=== PATIENT | male | born 1940 | race Caucasian/White ===

== ENCOUNTER 2018-06-01 12:34 | Outpatient (REF) | payer MEDICARE, OTHER, SELFPAY ==
[2018-06-01 18:56] LABS: ALT 42 U/L (12-78); Anion Gap 10.8 mmol/L (3-11); BUN 18 mg/dL (7-18); CO2 26.2 mmol/L (21.0-32.0); CREATININE 0.91 mg/dL (0.70-1.30); Calcium 9.1 mg/dL (8.5-10.1); Chloride 105 mmol/L (98-107); Glucose 87 mg/dL (70-100); LDL CHOLESTEROL 71 mg/dL (<100); Potassium 4.5 mmol/L (3.5-5.1); Sodium 142 mmol/L (136-145)
== END 2018-06-01 12:54 ==
LOC: NCHCN 12:34
PROVIDERS: PCP Physician Assistant Medical; Visit Provider Internal Medicine
DX: R53.83 Other fatigue (principal); I25.10 Atherosclerotic heart disease of native coronary artery without angina pectoris
CPT/HCPCS: 80048; 83721; 84460

== ENCOUNTER 2020-05-09 11:57 | Outpatient (REF) | payer MEDICARE, OTHER, SELFPAY ==
[2020-05-09 15:30] LABS: Abs Immature Grans 0.03 10^3/uL (0.0-0.06); Absolute Basophil Count 0.03 10^3/uL (0.0-0.2); Absolute Eosinophil Count 0.15 10^3/uL (0.0-0.7); Absolute Lymphocyte Count 1.73 10^3/uL (1.2-3.4); Absolute Monocyte Count 0.68 10^3/uL (0.1-0.8); Absolute Neutrophil Count 5.79 10^3/uL (1.2-6.7); Basophils % 0.4; Eosinophils % 1.8; HCT 38.6 % (40.0-50.0); HGB 12.9 g/dL (13.5-17.5); Immature Grans % 0.4; Lymphocytes % 20.6; MCH 30.9 pg (27.0-33.0); MCHC 33.4 % (32.0-36.0); MCV 92.3 fL (80-95); MPV 10.8 fL (8.0-11.0); Monocytes % 8.1; Neutrophils % 68.7; Nucleated RBC 0 %; Platelet Count 210 10^3/uL (130-400); RBC 4.18 10^6/uL (4.36-5.78); RDW 12.5 % (11.8-14.1); RDW-SD 42.5 fL; WBC 8.41 10^3/uL (4.4-10.8)
[2020-05-09 15:39] LABS: Anion Gap 8.7 mmol/L (3-11); BUN 23 mg/dL (7-18); CO2 26.3 mmol/L (21.0-32.0); CREATININE 1.3 mg/dL (0.70-1.30); Calcium 9.4 mg/dL (8.5-10.1); Chloride 105 mmol/L (98-107); Estimated GFR 53.12 (mL/min/1.73m2); Glucose 95 mg/dL (74-106); Potassium 5.2 mmol/L (3.5-5.1); Sodium 140 mmol/L (136-145); TSH 1.17 uIU/mL (0.36-3.74)
[2020-05-09 22:02] LABS: PSA, Diagnostic 4.1 ng/mL (0.0-6.5)
== END 2020-05-09 11:58 | disposition home or self-care (01) ==
LOC: NCHCN 11:57
PROVIDERS: PCP Physician Assistant Medical; Visit Provider Internal Medicine
DX: R53.83 Other fatigue (principal); I10 Essential (primary) hypertension; N42.9 Disorder of prostate, unspecified
CPT/HCPCS: 80048; 84153; 84443; 85025

== ENCOUNTER 2020-05-26 11:19 | Outpatient (REF) | payer MEDICARE, OTHER, SELFPAY ==
[2020-05-26 16:10] LABS: Iron 79 ug/dL (65-175); Total Iron Binding Capacity 359 ug/dL (250-450); Transferrin Sat 22 % (20-55)
[2020-05-26 16:40] LABS: Anion Gap 6.5 mmol/L (3-11); BUN 25 mg/dL (7-18); CO2 27.5 mmol/L (21.0-32.0); Calcium 9.1 mg/dL (8.5-10.1); Chloride 107 mmol/L (98-107); Ferritin 43 ng/mL (26-388); Glucose 96 mg/dL (74-106); Potassium 4.5 mmol/L (3.5-5.1); Sodium 141 mmol/L (136-145)
== END 2020-05-26 11:20 | disposition home or self-care (01) ==
LOC: NCHCN 11:19
PROVIDERS: PCP Physician Assistant Medical; Visit Provider Internal Medicine
DX: D64.9 Anemia, unspecified (principal); I10 Essential (primary) hypertension
CPT/HCPCS: 80048; 82728; 83540; 83550; 85045

== ENCOUNTER 2020-05-27 16:22 | Outpatient (REF) | payer MEDICARE, OTHER, SELFPAY | END 2020-05-27 16:23 | disposition home or self-care (01) | LOC: NCHCN 16:22 | PROVIDERS: PCP Physician Assistant Medical; Visit Provider Internal Medicine | DX: D64.9 Anemia, unspecified (principal); I10 Essential (primary) hypertension | CPT/HCPCS: 85045 ==

== ENCOUNTER 2021-05-22 13:31 | Outpatient (REF) | payer MEDICARE, OTHER, SELFPAY ==
[2021-05-22 19:54] LABS: HCT 37.8 % (40.0-50.0); HGB 12.4 g/dL (13.5-17.5); MCH 30.3 pg (27.0-33.0); MCHC 32.8 % (32.0-36.0); MCV 92.4 fL (80-95); MPV 11.4 fL (8.0-11.0); Platelet Count 183 10^3/uL (130-400); RBC 4.09 10^6/uL (4.36-5.78); RDW 13.1 % (11.8-14.1); RDW-SD 44.1 fL; WBC 8.17 10^3/uL (4.4-10.8)
[2021-05-22 20:07] LABS: ALT 26 U/L (16-63); Anion Gap 10.4 mmol/L (3-11); BUN 25 mg/dL (7-18); CO2 24.6 mmol/L (21.0-32.0); Calcium 8.8 mg/dL (8.5-10.1); Calculated LDL 56 mg/dL (<100); Chloride 105 mmol/L (98-107); Cholesterol 142 mg/dL (<200); Glucose 92 mg/dL (74-106); HDL Cholesterol 67 mg/dL (40-60); Potassium 4.8 mmol/L (3.5-5.1); Sodium 140 mmol/L (136-145); Triglyceride 96 mg/dL (<150)
== END 2021-05-22 13:32 | disposition home or self-care (01) ==
LOC: NCHCN 13:31
PROVIDERS: PCP Physician Assistant Medical; Visit Provider Internal Medicine
DX: D64.9 Anemia, unspecified (principal); R53.83 Other fatigue; E78.5 Hyperlipidemia, unspecified
CPT/HCPCS: 80048; 80061; 85027; 84460

== ENCOUNTER 2022-05-27 13:18 | Outpatient (REF) | payer MEDICARE, OTHER, SELFPAY ==
[2022-05-27 20:05] LABS: Anion Gap 9.1 mmol/L (3-11); BUN 24 mg/dL (7-18); CO2 25.9 mmol/L (21.0-32.0); CREATININE 1.1 mg/dL (0.70-1.30); Calcium 9.2 mg/dL (8.5-10.1); Calculated LDL 50 mg/dL (<100); Chloride 105 mmol/L (98-107); Cholesterol 136 mg/dL (<200); Estimated GFR 67.02 (mL/min/1.73m2); Glucose 93 mg/dL (74-106); HDL Cholesterol 69 mg/dL (40-60); Potassium 4.6 mmol/L (3.5-5.1); Sodium 140 mmol/L (136-145); Triglyceride 85 mg/dL (<150)
[2022-05-31 11:47] LABS: Lyme Ab w Rflx to Lyme Confirm Negative (Negative)
== END 2022-05-27 13:19 | disposition home or self-care (01) ==
LOC: NCHCN 13:18
PROVIDERS: PCP Physician Assistant Medical; Visit Provider Internal Medicine
DX: I10 Essential (primary) hypertension (principal); I25.10 Atherosclerotic heart disease of native coronary artery without angina pectoris; M13.161 Monoarthritis, not elsewhere classified, right knee
CPT/HCPCS: 80048; 80061; 86618

== ENCOUNTER 2023-05-19 14:25 | Outpatient (REF) | payer MEDICARE, OTHER, SELFPAY ==
[2023-05-19 18:57] LABS: HCT 37.2 % (40.0-50.0); HGB 12.7 g/dL (13.5-17.5); MCH 30.5 pg (27.0-33.0); MCHC 34.1 % (32.0-36.0); MCV 89 fL (80-95); MPV 11.3 fL (8.0-11.0); Platelet Count 199 10^3/uL (130-400); RBC 4.16 10^6/uL (4.36-5.78); RDW 13.9 % (11.8-14.1); RDW-SD 45.2 fL; WBC 6.12 10^3/uL (4.4-10.8)
[2023-05-19 19:13] LABS: ALT 39 U/L (16-63); Anion Gap 10.2 mmol/L (3-11); BUN 23 mg/dL (7-18); CO2 28.8 mmol/L (21.0-32.0); CREATININE 1.7 mg/dL (0.70-1.30); Calcium 9.6 mg/dL (8.5-10.1); Calculated LDL 65 mg/dL (<100); Chloride 104 mmol/L (98-107); Cholesterol 163 mg/dL (<200); Creatine Kinase 194 U/L (39-308); Estimated GFR 39.51 (mL/min/1.73m2); Glucose 128 mg/dL (74-106); HDL Cholesterol 87 mg/dL (40-60); Potassium 4.5 mmol/L (3.5-5.1); Sodium 143 mmol/L (136-145); Triglyceride 56 mg/dL (<150)
== END 2023-05-19 14:26 | disposition home or self-care (01) ==
LOC: NCHCN 14:25
PROVIDERS: PCP Physician Assistant Medical; Visit Provider Internal Medicine
DX: E78.5 Hyperlipidemia, unspecified (principal); D64.9 Anemia, unspecified; I10 Essential (primary) hypertension
CPT/HCPCS: 80048; 80061; 82550; 85027; 84460

== ENCOUNTER 2023-05-24 16:07 | Outpatient (REF) | payer MEDICARE, OTHER, SELFPAY ==
[2023-05-24 20:05] LABS: Bilirubin Negative (Negative); Blood Negative (Negative); Clarity Clear (Clear); Glucose Negative (Negative); Ketones Trace mg/dL (Negative); Leukocyte Esterase Negative (Negative); Nitrite Negative (Negative); Urobilinogen 0.2 mg/dL (Up to 0.2); pH 5.5 (5-8)
[2023-05-26 15:25] LABS: Albumin 64.5 % (55.8-66.1); Albumin g/dL 4.3 g/dL (3.6-5.2); Total Protein 6.6 g/dL (6.3-8.2)
[2023-05-26 15:36] LABS: Albumin, Urine % 14.6 %; Albumin, Urine mg/dL 1 mg/dL; Globulins, Urine % 85.4 %; Globulins, Urine mg/dL 4 mg/dL; Immunotyping, Urine (See Note); Total Protein Urine 5 mg/dL (See Note)
== END 2023-05-24 16:08 | disposition home or self-care (01) ==
LOC: NCHCN 16:07
PROVIDERS: PCP Physician Assistant Medical; Visit Provider Internal Medicine
DX: N18.30 Chronic kidney disease, stage 3 unspecified (principal)
CPT/HCPCS: 84156; 84166; 86335; 81003; 84165

== ENCOUNTER 2024-05-09 16:38 | Outpatient (REF) | payer MEDICARE, SELFPAY ==
[2024-05-09 20:24] LABS: HCT 38.5 % (40.0-50.0); HGB 12.8 g/dL (13.5-17.5); MCH 30.8 pg (27.0-33.0); MCHC 33.2 % (32.0-36.0); MCV 93 fL (80-95); MPV 11.5 fL (8.0-11.0); Platelet Count 167 10^3/uL (130-400); RBC 4.15 10^6/uL (4.36-5.78); RDW 12.8 % (11.8-14.1); RDW-SD 43.8 fL; WBC 8.29 10^3/uL (4.4-10.8)
[2024-05-09 21:03] LABS: Anion Gap 8.2 mmol/L (3-11); BUN 25 mg/dL (7-18); CO2 27.8 mmol/L (21.0-32.0); CREATININE 1.1 mg/dL (0.70-1.30); Calcium 9.7 mg/dL (8.5-10.1); Chloride 107 mmol/L (98-107); Estimated GFR 66.19 (mL/min/1.73m2); Glucose 95 mg/dL (74-106); Potassium 5.5 mmol/L (3.5-5.1); Sodium 143 mmol/L (136-145); TSH 1.76 uIU/mL (0.36-3.74); Vitamin B12 612 pg/mL (193-986)
== END 2024-05-09 16:39 | disposition home or self-care (01) ==
LOC: NCHCN 16:38
PROVIDERS: PCP Physician Assistant Medical; Visit Provider Internal Medicine
DX: N18.30 Chronic kidney disease, stage 3 unspecified (principal); R41.89 Other symptoms and signs involving cognitive functions and awareness
CPT/HCPCS: 80048; 85027; 82607; 84443

== ENCOUNTER 2024-06-04 19:08 | Outpatient (REF) | payer MEDICARE, OTHER, SELFPAY ==
[2024-06-04 19:14] LABS: Anion Gap 10.7 mmol/L (3-11); BUN 27 mg/dL (7-18); CO2 26.3 mmol/L (21.0-32.0); Calcium 9.3 mg/dL (8.5-10.1); Chloride 107 mmol/L (98-107); Estimated GFR 74.21 (mL/min/1.73m2); Glucose 110 mg/dL (74-106); Potassium 4.1 mmol/L (3.5-5.1); Sodium 144 mmol/L (136-145)
== END 2024-06-04 19:09 | disposition home or self-care (01) ==
LOC: NCHCN 19:08
PROVIDERS: PCP Physician Assistant Medical; Visit Provider Internal Medicine
DX: I10 Essential (primary) hypertension (principal)
CPT/HCPCS: 80048

== ENCOUNTER 2024-08-29 10:53 | Outpatient (REF) | payer MEDICARE, OTHER, SELFPAY ==
--- NOTE | 2024-08-29 12:00 | SKI_PTH ---
PATIENT: Tay Longoria LOC: [facility]#:[id number] AGE/SX: 83/M ROOM: RE08/29/[address]: Rizwan Burton : 1940 BED: DIS: 08/29/2024 SPEC #: [id number] RECD: 08/30/24 12:52 STATUS: LANCE REQ #: [id number] HORACIO: 08/29/24 12:[address]: Rizwan Burton DEPT: Surgical Specimen RECD BY: Annia Kurtz ENTERED: 08/30/24 12:53 SP TYPE: YAAKOV MATTHEW DR: Kashmir Brumfield V Tissues: 1 - SKIN BIOPSY(SHAVE/PUNCH) Procedures: SKIN LEVEL 4 Comments: [id number]
== END 2024-08-29 10:54 | disposition home or self-care (01) ==
LOC: NCHCN 10:53
PROVIDERS: PCP Physician Assistant Medical; Visit Provider Internal Medicine
DX: C44.41 Basal cell carcinoma of skin of scalp and neck (principal)
CPT/HCPCS: 88305